=== PATIENT | female | born 1995 | race Two or more races ===

== ENCOUNTER 2018-01-30 11:20 | Emergency (ER) | payer SELFPAY ==
[~2018-01-30] VITALS: Ht 165.1 cm; Wt 63.5 kg
[2018-01-30 11:28] VITALS: BP 134/77
[2018-01-30] MEDS ORDERED: ACETAMINOPHEN 325 MG TABLET PO ONE (12:00)
[2018-01-30] MEDS ORDERED: ACETAMINOPHEN ES 500 MG TABLET ONE (12:01)
== END 2018-01-30 13:12 | disposition home or self-care (01) ==
LOC: ER 11:24
DX: S60.011A Contusion of right thumb without damage to nail, initial encounter (principal); W20.8XXA Other cause of strike by thrown, projected or falling object, initial encounter; Y93.89 Activity, other specified; Y92.89 Other specified places as the place of occurrence of the external cause; Y99.8 Other external cause status
CPT/HCPCS: 11740; 73140; 84703; 99285; A4606; A6402; A6403; Z7610